=== PATIENT | female | born 1955 | race Caucasian/White ===

== ENCOUNTER → 2023-07-19 12:00 | Outpatient (REF) | payer MEDICARE, OTHER, SELFPAY ==
[2023-07-19 13:17] LABS: Erythrocyte Sed Rate 54 mm/hour (0-20)
[2023-07-23 21:27] LABS: Calprotectin, Fecal 39 ug/g (<=49)
== END ==
LOC: REG 12:00
PROVIDERS: ATTENDING PHYSICIAN Specialist; FAMILY PHYSICIAN Family Medicine
DX: R19.7 Diarrhea, unspecified (principal); R51.9 Headache, unspecified
CPT/HCPCS: 36415; 83993; 85652; 86140; 87045; 87046; 87077; 87328; 87329; 87427

== ENCOUNTER → 2023-08-04 13:37 | Outpatient (REF) | payer MEDICARE, OTHER, SELFPAY | LOC: DHCBS MAIN 13:37 | PROVIDERS: ATTENDING PHYSICIAN Internal Medicine Cardiovascular Disease; FAMILY PHYSICIAN Family Medicine | DX: R00.1 Bradycardia, unspecified (principal); I10 Essential (primary) hypertension | CPT/HCPCS: 93306 ==

== ENCOUNTER → 2023-11-09 15:53 | Outpatient (REF) | payer MEDICARE, OTHER, SELFPAY | LOC: MRI 3T 15:53 | PROVIDERS: ATTENDING PHYSICIAN Specialist | DX: G35 Multiple sclerosis (principal) | CPT/HCPCS: 72156; A9575 ==

== ENCOUNTER → 2023-11-16 07:15 | Outpatient (REF) | payer MEDICARE, OTHER, SELFPAY ==
[2023-11-16] MEDS: FLUSH (NSS) 1 FLUSH IV (09:03)
[2023-11-16] MEDS: LEXISCAN 0.400000000000000022 MG IV (09:03)
[2023-11-16] MEDS: AMINOPHYLLINE 75 MG IV (09:12)
== END ==
LOC: RCS 07:15
PROVIDERS: ATTENDING PHYSICIAN Internal Medicine Cardiovascular Disease; FAMILY PHYSICIAN Family Medicine
DX: R06.09 Other forms of dyspnea (principal)
CPT/HCPCS: 78452; 93017; A9500; J2785

== ENCOUNTER → 2023-11-29 10:07 | Outpatient (REF) | payer MEDICARE, OTHER, SELFPAY ==
[2023-11-29 12:13] LABS: % Basophils 0.8 % (0-2); % Eosinophils 1.3 % (0-6); % Immature Granulocytes 0.3 % (0-0.5); % Lymphocytes 8.8 % (20.5-51.1); % Monocytes 5.3 % (1.7-9.3); % Neutrophils 83.5 % (42.2-75.2); Absolute Basophils 0.1 10^3/uL (0-0.2); Absolute Eosinophils 0.1 10^3/uL (0-0.7); Absolute Lymphocytes 0.5 10^3/uL (1.2-3.4); Absolute Monocytes 0.3 10^3/uL (0.1-0.6); Hematocrit 39.8 % (37.0-47.0); Hemoglobin 13.2 g/dL (12.0-16.0); Mean Corp Hgb Conc. 33.2 g/dL (33.0-37.0); Mean Corpuscular Hgb 27.9 pg (27.0-31.0); Mean Corpuscular Volume 84.1 fL (81.0-99.0); Mean Platelet Volume 9.8 fL (7.4-10.4); Nucleated Red Blood Cells % 0 %; Platelet Count 193 10^3/uL (130-400); Red Blood Cell Count 4.73 10^6/uL (4.20-5.40); Red Cell Dist. Width 15.9 % (11.5-14.5)
[2023-11-29 12:17] LABS: Ionized Calcium 0.99 mMOL/L (1.15-1.33)
[2023-11-29 12:59] LABS: IgA 208 mg/dl (70-400); IgG 1360 mg/dl (700-1600); IgM 156 mg/dl (40-230)
[2023-11-29 13:19] LABS: Erythrocyte Sed Rate 64 mm/hour (0-20)
[2023-11-29 13:31] LABS: ALT (SGPT) < 10 U/L (0-35); AST (SGOT) 23 U/L (14-36); Albumin 4.5 g/dl (3.5-5.0); Alkaline Phosphatase 125 U/L (38-126); Blood Urea Nitrogen 15 mg/dl (7-17); Carbon Dioxide 28 mmol/L (22-30); Chloride 100 mmol/L (98-107); Glucose 108 mg/dl (70-99); Sodium 138 mmol/L (135-145); Total Bilirubin 0.7 mg/dl (0.2-1.3); Total Protein 8.1 g/dl (6.3-8.2); eGFR > 60.00
[2023-11-29 13:48] LABS: Vitamin B12 360 pg/ml (239-931)
[2023-11-29 18:51] LABS: Hepatitis B Surface Antigen Negative (Negative)
[2023-11-29 19:00] LABS: Hepatitis B Core Ab, IgM Negative (Negative)
[2023-11-29 19:09] LABS: Hepatitis C Antibody Negative (Negative)
[2023-11-30 13:55] LABS: HIV Combo Negative (Negative)
[2023-12-01 08:57] LABS: Quantiferon Mitogen minus NIL 7.78 IU/mL; Quantiferon NIL 0.06 IU/mL; Quantiferon TB Gold Plus Negative (Negative)
[2023-12-01 15:06] LABS: ANA, IgG Reflex to HEp-2 Detected (None Detected)
[2023-12-02 01:47] LABS: Varicella Zoster IgM 0.61 ISR (<=0.90)
[2023-12-02 02:21] LABS: SSA 52 (Ro)(ENA) Ab, IgG 2 AU/mL (0-40); SSA 60 (Ro)(ENA) Ab, IgG 0 AU/mL (0-40); SSB (La)(ENA) Ab, IgG 10 AU/mL (0-40)
== END ==
LOC: REG 10:07
PROVIDERS: ATTENDING PHYSICIAN Psychiatry & Neurology Neurology; FAMILY PHYSICIAN Family Medicine; OTHER PHYSICIAN Internal Medicine Endocrinology, Diabetes & Metabolism; REFERRING PHYSICIAN Specialist
DX: E03.9 Hypothyroidism, unspecified (principal); E89.2 Postprocedural hypoparathyroidism; Z51.81 Encounter for therapeutic drug level monitoring; G35 Multiple sclerosis; R51.9 Headache, unspecified; R19.7 Diarrhea, unspecified; Z79.899 Other long term (current) drug therapy
CPT/HCPCS: 36415; 80053; 82330; 82607; 82784; 85025; 85652; 86038; 86140; 86235; 86480; 86618; 86705; 86787; 86803; 87340; 87389

== ENCOUNTER → 2023-12-25 11:44 | Outpatient (REF) | payer MEDICARE, OTHER, SELFPAY | LOC: REG 11:44 | PROVIDERS: ATTENDING PHYSICIAN Internal Medicine Gastroenterology; FAMILY PHYSICIAN Family Medicine | DX: R19.7 Diarrhea, unspecified (principal); R19.4 Change in bowel habit | CPT/HCPCS: 83993; 87045; 87046; 87177; 87209; 87324; 87328; 87329; 87427; 87449 ==

== ENCOUNTER → 2024-01-05 13:57 | Outpatient (REF) | payer MEDICARE, OTHER, SELFPAY | LOC: WDC 13:57 | PROVIDERS: ATTENDING PHYSICIAN Family Medicine | DX: Z12.31 Encounter for screening mammogram for malignant neoplasm of breast (principal) | CPT/HCPCS: 77063; 77067 ==

== ENCOUNTER → 2024-01-13 06:36 | Day surgery (SDC) | payer MEDICARE, OTHER, SELFPAY | LOC: GI 06:36 | PROVIDERS: ATTENDING PHYSICIAN Internal Medicine Gastroenterology | DX: R19.4 Change in bowel habit (principal); K57.30 Diverticulosis of large intestine without perforation or abscess without bleeding; K64.8 Other hemorrhoids; K55.20 Angiodysplasia of colon without hemorrhage | CPT/HCPCS: 45380; 88305; 93005 ==

== ENCOUNTER → 2024-03-14 10:47 | Outpatient (REF) | payer MEDICARE, OTHER, SELFPAY | LOC: MRI 3T 10:47 | PROVIDERS: ATTENDING PHYSICIAN Psychiatry & Neurology Neurology; FAMILY PHYSICIAN Family Medicine | DX: G35 Multiple sclerosis (principal); Z79.899 Other long term (current) drug therapy; H53.9 Unspecified visual disturbance | CPT/HCPCS: 70553 ==

== ENCOUNTER → 2024-05-22 13:28 | Outpatient (REF) | payer MEDICARE, OTHER, SELFPAY | LOC: PAVMRI 13:28 | PROVIDERS: ATTENDING PHYSICIAN Psychiatry & Neurology Neurology | DX: G35 Multiple sclerosis (principal); H53.9 Unspecified visual disturbance | CPT/HCPCS: 70543; A9575 ==

== ENCOUNTER → 2024-06-22 11:10 | Outpatient (REF) | payer MEDICARE, OTHER, SELFPAY ==
[2024-06-22 13:09] LABS: Urine Albumin 1+ (Neg - Trace); Urine Bilirubin Negative (Negative); Urine Character Very Cloudy (Clear); Urine Color Yellow; Urine Glucose Negative (Negative); Urine Ketone Negative (Negative); Urine Leukocyte 2+ (Negative); Urine Nitrite Negative (Negative); Urine Occult Blood 4+ (Negative); Urine Urobilinogen Negative (Neg - 1+)
[2024-06-22 14:35] LABS: Urine Mucus Few; Urine Squamous Cell >30 /LPF (Few)
[2024-06-22 14:36] LABS: Urine Amorphous Seen
[2024-06-22 14:38] LABS: Urine Red Blood Cell 16-20 /HPF (0-2)
[2024-06-22 14:39] LABS: Urine Bacteria Many (Negative)
== END ==
LOC: REG 11:10
PROVIDERS: ATTENDING PHYSICIAN Nurse Practitioner Family; FAMILY PHYSICIAN Family Medicine
DX: R30.0 Dysuria (principal)
CPT/HCPCS: 81003; 81015; 87086

== ENCOUNTER → 2024-06-28 15:54 | Outpatient (REF) | payer MEDICARE, OTHER, SELFPAY ==
[2024-06-28 17:00] LABS: % Basophils 0.6 % (0-2); % Eosinophils 0.3 % (0-6); % Immature Granulocytes 0.5 % (0-0.5); % Lymphocytes 5.4 % (20.5-51.1); % Monocytes 5.8 % (1.7-9.3); % Neutrophils 87.4 % (42.2-75.2); Absolute Basophils 0.1 10^3/uL (0-0.2); Absolute Immature Granulocytes 0.1 10^3/uL (0-0.05); Absolute Lymphocytes 0.7 10^3/uL (1.2-3.4); Absolute Monocytes 0.7 10^3/uL (0.1-0.6); Absolute Neutrophils 10.6 10^3/uL (1.4-6.5); Hematocrit 41.3 % (37.0-47.0); Hemoglobin 13.2 g/dL (12.0-16.0); Mean Corpuscular Hgb 28.1 pg (27.0-31.0); Mean Corpuscular Volume 88.1 fL (81.0-99.0); Mean Platelet Volume 10.6 fL (7.4-10.4); Nucleated Red Blood Cells % 0 %; Platelet Count 197 10^3/uL (130-400); Red Blood Cell Count 4.69 10^6/uL (4.20-5.40); White Blood Cell Count 12.2 10^3/uL (4.8-10.8)
[2024-06-28 17:05] LABS: ALT (SGPT) < 10 U/L (0-35); AST (SGOT) 19 U/L (14-36); Albumin 4.6 g/dl (3.5-5.0); Alkaline Phosphatase 102 U/L (38-126); Blood Urea Nitrogen 12 mg/dl (7-17); Calcium 8.1 mg/dl (8.4-10.2); Carbon Dioxide 26 mmol/L (22-30); Chloride 95 mmol/L (98-107); Glucose 116 mg/dl (70-99); Potassium 3.4 mmol/L (3.5-5.1); Sodium 135 mmol/L (135-145); Total Bilirubin 0.9 mg/dl (0.2-1.3); Total Protein 7.7 g/dl (6.3-8.2); eGFR > 60.00
== END ==
LOC: CLAB 15:54
PROVIDERS: ATTENDING PHYSICIAN Family Medicine
DX: N30.90 Cystitis, unspecified without hematuria (principal); R10.9 Unspecified abdominal pain; Z90.5 Acquired absence of kidney; Z87.442 Personal history of urinary calculi
CPT/HCPCS: 36415; 80053; 85025

== ENCOUNTER → 2024-07-21 14:51 | Outpatient (REF) | payer MEDICARE, OTHER, SELFPAY | LOC: RAD 14:51 | PROVIDERS: ATTENDING PHYSICIAN Family Medicine | DX: N30.90 Cystitis, unspecified without hematuria (principal); R10.9 Unspecified abdominal pain; Z90.5 Acquired absence of kidney; Z87.442 Personal history of urinary calculi | CPT/HCPCS: 76770 ==

== ENCOUNTER → 2024-07-22 11:09 | Outpatient (REF) | payer MEDICARE, OTHER, SELFPAY ==
[2024-07-22 11:52] LABS: Ionized Calcium 1.04 mMOL/L (1.15-1.33)
[2024-07-22 11:53] LABS: Urine Albumin 1+ (Neg - Trace); Urine Bilirubin Negative (Negative); Urine Character Clear (Clear); Urine Color Yellow; Urine Glucose Negative (Negative); Urine Ketone Negative (Negative); Urine Leukocyte 2+ (Negative); Urine Nitrite Negative (Negative); Urine Occult Blood 4+ (Negative); Urine Specific Gravity 1.015 (<1.030); Urine Urobilinogen Negative (Neg - 1+)
[2024-07-22 11:56] LABS: % Basophils 0.8 % (0-2); % Eosinophils 0.9 % (0-6); % Immature Granulocytes 0.5 % (0-0.5); % Lymphocytes 9.9 % (20.5-51.1); % Neutrophils 82.9 % (42.2-75.2); Absolute Basophils 0.1 10^3/uL (0-0.2); Absolute Eosinophils 0.1 10^3/uL (0-0.7); Absolute Lymphocytes 0.7 10^3/uL (1.2-3.4); Absolute Monocytes 0.3 10^3/uL (0.1-0.6); Absolute Neutrophils 5.4 10^3/uL (1.4-6.5); Hematocrit 36.3 % (37.0-47.0); Hemoglobin 11.9 g/dL (12.0-16.0); Mean Corp Hgb Conc. 32.8 g/dL (33.0-37.0); Mean Corpuscular Hgb 28.3 pg (27.0-31.0); Mean Corpuscular Volume 86.4 fL (81.0-99.0); Mean Platelet Volume 10.6 fL (7.4-10.4); Nucleated Red Blood Cells % 0 %; Platelet Count 180 10^3/uL (130-400); Red Cell Dist. Width 14.9 % (11.5-14.5); White Blood Cell Count 6.6 10^3/uL (4.8-10.8)
[2024-07-22 12:00] LABS: Urine Bacteria Few (Negative); Urine Calcium Oxalate Crystals Present; Urine Squamous Cell 0-2 /LPF (Few)
[2024-07-22 12:16] LABS: ALT (SGPT) < 10 U/L (0-35); AST (SGOT) 18 U/L (14-36); Albumin 4.4 g/dl (3.5-5.0); Alkaline Phosphatase 80 U/L (38-126); Blood Urea Nitrogen 15 mg/dl (7-17); Calcium 8.8 mg/dl (8.4-10.2); Carbon Dioxide 30 mmol/L (22-30); Chloride 100 mmol/L (98-107); Glucose 121 mg/dl (70-99); HDL Cholesterol 66 mg/dl; LDL Cholesterol, Calculated 91 mg/dl; Potassium 3.6 mmol/L (3.5-5.1); Sodium 139 mmol/L (135-145); Total Bilirubin 0.7 mg/dl (0.2-1.3); Total Cholesterol 189 mg/dl (50-199); Total Protein 6.9 g/dl (6.3-8.2); Triglyceride 163 mg/dl (10-149); Very Low Density Lipoprotein 32 mg/dl (0-30); eGFR > 60.00
[2024-07-22 12:28] LABS: Intact PTH 17.2 pg/ml (13.6-85.8)
[2024-07-22 12:32] LABS: Free T4 1.26 ng/dl (0.78-2.19); Vitamin D, 25-OH*** 54.4 ng/mL (30-80)
[2024-07-22 12:46] LABS: TSH 0.59 uIU/ml (0.47-4.68)
[2024-07-22 14:35] LABS: Glycohemoglobin (HgbA1c) 5.6 % (4.0-5.6)
== END ==
LOC: REG 11:09
PROVIDERS: ATTENDING PHYSICIAN Internal Medicine Endocrinology, Diabetes & Metabolism; FAMILY PHYSICIAN Family Medicine
DX: E03.9 Hypothyroidism, unspecified (principal); E89.2 Postprocedural hypoparathyroidism; E55.9 Vitamin D deficiency, unspecified; N30.90 Cystitis, unspecified without hematuria; R10.9 Unspecified abdominal pain; Z90.5 Acquired absence of kidney; Z87.442 Personal history of urinary calculi; E89.0 Postprocedural hypothyroidism; E78.2 Mixed hyperlipidemia; R73.03 Prediabetes
CPT/HCPCS: 36415; 80053; 80061; 81003; 81015; 82306; 82330; 83036; 83970; 84439; 84443; 85025; 87086

== ENCOUNTER 2024-08-23 06:26 | Day surgery (SDC) | payer MEDICARE, OTHER, SELFPAY ==
[2024-08-16 14:22] VITALS: BMI 33.6
--- NOTE | 2024-08-16 16:15 | PTCARENOTE ---
Abnormal ECG 08/16/[address] Gardner, no further interventions requested.
[2024-08-23 08:21] VITALS: BMI 33.6
[2024-08-23] MEDS: NORMOSOL-R/PLASMALYTE-A 1000 IV (08:24)
[2024-08-23 09:45] VITALS: BP 162/87
--- NOTE | 2024-08-23 09:54 | SUR.PHASEI ---
Rec'd sleepy, oriented x 3 by RN, HOB elevated low fowlers in PACU, denies c/o
[2024-08-23 10:00] VITALS: BP 160/84
--- NOTE | 2024-08-23 10:04 | SUR.PHASEI ---
deep breathes encouraged keyur well
[2024-08-23] MEDS: Pyridium 200 MG PO (10:10)
[2024-08-23 10:15] VITALS: BP 140/80
[2024-08-23 10:18] VITALS: BP 145/80
[2024-08-23 10:33] VITALS: BP 142/95
[2024-08-23 10:50] VITALS: BP 144/99
== END 2024-08-23 11:03 | disposition home or self-care (01) ==
LOC: SDS 06:26
PROVIDERS: ATTENDING PHYSICIAN Specialist; FAMILY PHYSICIAN Family Medicine
DX: N20.0 Calculus of kidney (principal)
CPT/HCPCS: 52356; 74018; 76000; C1894; C2617

== ENCOUNTER 2024-10-25 14:50 | Inpatient (IN) | payer MEDICARE, OTHER, SELFPAY ==
[2024-10-24] VITALS (22 sets, daily range): BP systolic 128–229; BP diastolic 0–164; PULSE 68; BMI 38.1
--- NOTE | 2024-10-24 18:08 | ED.GENMED ---
History of Present Illness
General
Chief Complaint: Numbness
Source: patient
Exam Limitations: none
Time Seen by Provider: 10/24/24 17:50
Nursing documentation reviewed up to this point in time: agreed with
History of Present Illness
History of Present Illness:
61-year-old female presents emergency department due to left-sided facial numbness, headache, posterior eye pain ongoing for 1 week. She follows with neurologist Dr. Dominguez at [facility]. He instructed her to come to the hospital to be evaluated.
Past History
Past History
ED Past Medical History: Other (Thyroidectomy, chronic pain syndrome, kidney stones, MS, fibromyalgia) and Other (Multiple sclerosis, chronic pain syndrome, depression, anxiety)
ED Past Surgical History: Gynecological and Other (Thyroidectomy)
Social History
Tobacco: Non-smoker
Alcohol: None
Drug: None
Personal:
Living: with family
Employment: Employed
Family History
Family History: Hypertension
Review of Systems
Review of Systems
Allergies reviewed?: Yes
All Other Systems: Not applicable
Constitutional: Reports no symptoms
EENT: Reports no symptoms
Respiratory: Reports no symptoms
Cardiac: Reports no symptoms
ABD/GI: Reports no symptoms
: Reports no symptoms
Musculoskeletal: Reports no symptoms
Skin: Reports no symptoms
Neurological: Reports headache and numbness
Endocrine: Reports no symptoms
Hematologic/Lymphatic: Reports no symptoms
Psychiatric: Reports no symptoms
Phy Exam
Physical Exam
Physical Exam:
Physical Exam
General: no apparent distress, not acutely ill
Neck: supple. no meningeal signs. normal posterior pharynx
Heart: s1/s2 regular rate and rhythm, no murmur. equal radial
pulses.
HEENT: Pupils equal round reactive to light, EOMI
Lungs: no acute respiratory distress. clear bilaterally
Abdomen: normal bowel sounds. not tender. no CVAT
Neuro: alert and oriented. no focal neurological deficits cranial nerves II through XII intact, except left facial numbness
Skin: no rash
Psychiatric: well kept. interactive and cooperative
Extremities: no edema. no calf tenderness. negative homans. good distal pulses
Course
Orders/Labs/Results
Orders:
Orders
10/24/24 13:33
Electrocardiogram (*1) Urgent
Reason for Study: Other
Other Reason for Exam: Possible Stroke
EKG- Treatment ONCE
10/24/24 13:35
CT Head W/o Iv Contrast Urgent
Comment:
Reason For Exam: headache and facial numbness
10/24/24 17:59
Diphenhydramine [Benadryl] 25 mg IV NOW STA
10/24/24 18:00
Labetalol HCl [Trandate] 10 mg IV NOW STA
10/24/24 18:22
Complete Blood Count/With Diff Routine
Comprehensive Metabolic Panel Routine
10/24/24 18:28
Promethazine [Phenergan] 25 mg 0.9% Sodium Chloride 50 ml [Nss] 50 ml IV NOW
10/24/24 19:15
Labetalol HCl [Trandate] 20 mg IV NOW STA
10/24/24 20:14
Admit/Transfer Patient As Directed
Co-Sign Provider:
Level of Care: Observation services
Assign to:: Telemetry
Physician / Group: Vicky
Diagnosis: hypertensive urgency
Reason for Telemetry: CVA/TIA
Date to Stop Telemetry: 10/27/24
Time to Stop Telemetry: 11:00
PRN Pain Medication Management As Directed
May give lesser potent ordered pain med per pt: Yes
preference::
Protocol:: Medication orders for pain may be administered in a
manner that supports deferring to patient preference
when the pt is:
- Requesting an ordered lesser potent pain medication.
Least to most potent pain medications are defined
as: acetaminophen < NSAID < tramadol < opioids
(morphine, oxycodone, hydromorphone).
- Requesting a lesser dose of the same medication IF
ORDERED.
- Requesting a less intrusive route of administration
if both routes are prescribed by the provider (PO <
IV).
10/24/24 20:15
Diphenhydramine [Benadryl] 25 mg IV NOW STA
10/24/24 20:16
Code Status As Directed
Resuscitation Status: Full Code
10/24/24 21:00
Nicardipine 40 mg/200 ml [Cardene] 40 mg in 200 ml IV PER PROTOCOL
Initial dose in mg/hr, then titrate:: 5
Titrate to keep:: SBP 140 - 160 mmHg
Titrate by mg/hr:: 2.5 mg/hr
Frequency of titrations (minutes):: 5-15 minutes
Maximum dose in mg/hr:: 15
Begin to taper infusion when:: Remained at goal for 2hrs
Taper by mg/hr:: 2.5 mg/hr
Frequency of taper (minutes) if patient maintains goal:: every 15-30 minutes
Taper to off?: Yes
If infusion off & no longer maintaining goal:: Contact Provider
10/24/24 22:32
Acetaminophen [Tylenol/Feverall] 650 mg RECTAL Q4HPRN PRN
Acetaminophen [Tylenol] 650 mg PO Q4HPRN PRN
Calcitriol [Rocaltrol] 0.5 mcg PO TID
Gabapentin [Neurontin] 300 mg PO DAILYPRN PRN
Gabapentin [Neurontin] 300 mg PO TID
Labetalol HCl [Trandate] 10 mg IV Q6HPRN PRN
Lorazepam [Ativan] 0.5 mg PO QID PRN
Promethazine [Phenergan] 12.5 mg 0.9% Sodium Chloride 50 ml [Nss] 50 ml IV Q4HPRN
Rosuvastatin Calcium [Crestor] 40 mg PO HS
10/24/24 22:32
Case Management Consult ONCE
Case Management Consult: Discharge Planning
Comment: stroke/tia
DIETARY IP CONSULT Routine
Reason for Consult: stroke/TIA
NEUROLOGY CONSULT Routine
Consulting Provider: Jeremy Eaton
Was physician already notified: Yes
Photographer Model Urgent
MR Brain With Contrast Routine
Comment:
Reason For Exam: stroke/TIA, eval MS
Recent pill cam endoscopy?: No
MR Cervical Spine W Contrast Routine
Comment:
Reason For Exam: eval ms
Recent pill cam endoscopy?: Yes
Activity As Directed
Activity Level: With Assistance
NIH Stroke Scale As Directed
Directions: Per protocol
Comment: every shift and with any change in condition or mental status
Neurological Checks As Directed
Frequency: q4h
Additional Instructions:: q4h x 24h upon admission to the floor, then qshift & with any change in condition
and mental status
Patient Education As Directed
Type: Stroke education packet
Comment: provide to patient and family
Swallow Screening CVA/TIA ONLY As Directed
Comment: NPO until swallowing screening completed
If patient FAILS swallow screening:: NPO, Speech Therapy consult, Aspiration Precautions
If patient PASSES swallow screening, diet:: Cholesterol Lowering
Above diet order entered?: Yes- passed screening
Vital Signs As Directed
Frequency: Per unit guidelines
O2 Therapy [RESP] Routine
Nasal Cannula Liter Flow: 2 LPM
Titrate/Wean O2 to maintain O2 sat greater than (%): 94
Special Instructions: Titrate oxygen via nasal cannula starting at 2 liters/minute to keep SpO2 greater than
94%. Notify physician if greater than or equal to 6 liters/minute of O2
Ot Eval And Treat Routine
Pt Eval And Treat Routine
Activity Level: With Assistance
Speech Therapy Eval & Treat Routine
DX Deep Vein Thrombosis Video Routine
10/25/24 04:00
Sertraline HCl [Zoloft] 100 mg PO BID@0400,1000
10/25/24 06:00
Basic Metabolic Panel IN AM
Cardiovascular Evaluation IN AM
Complete Blood Count/No Diff IN AM
Erythrocyte Sed Rate IN AM
Glycohemoglobin (HgbA1c) IN AM
Magnesium IN AM
Levothyroxine [Synthroid] 100 mcg PO DAILY @ 0600
10/25/24 08:00
ARIPiprazole [Abilify] 5 mg PO DAILY
Amlodipine [Norvasc] 10 mg PO DAILY
Calcium Carbonate/Vitamin D3 [Oscal 500 + D] 500 mg PO BID
Lorazepam [Ativan] 1 mg PO DAILY
colestipol See Dose Instructions PO BID
teriflunomide See Dose Instructions PO DAILY
10/25/24 18:00
Enoxaparin Sodium [Lovenox] 40 mg SC QPM
10/27/24 11:00
DC Protocol for Telemetry ONCE
Abnormal Lab Results
10/24/24
18:22
MCHC 32.6 L g/dL
(33.0-37.0)
RDW 14.6 H %
(11.5-14.5)
Absolute Neuts (auto) 7.1 H 10^3/uL
(1.4-6.5)
Absolute Lymphs (auto) 0.8 L 10^3/uL
(1.2-3.4)
Neutrophils % 83.9 H %
(42.2-75.2)
Lymphocytes % 9.8 L %
(20.5-51.1)
Potassium 3.4 L mmol/L
(3.5-5.1)
Carbon Dioxide 32 H mmol/L
(22-30)
BUN 19 H mg/dl
(7-17)
Glucose 104 H mg/dl
(70-99)
10/24/24 18:22
10/24/24 18:22
Vital Signs
Initial and Last Documented VS:
Initial Vital Signs
Temp Pulse Resp BP Pulse Ox
97.9 F 86 18 207/126 92
10/24/24 13:25 10/24/24 13:25 10/24/24 13:25 10/24/24 13:25 10/24/24 13:25
Last Documented Vital Signs
Temp Pulse Resp BP Pulse Ox
98.7 F 89 10 151/92 95
10/24/24 23:04 10/24/24 22:47 10/24/24 21:15 10/24/24 22:00 10/24/24 23:01
MDM/Problems Addressed
Differential Diagnosis Includes:
CVA, MS exacerbation
MDM/Problems Addressed:
69-year-old female with hypertensive urgency, Cardene drip, possible CVA versus MS exacerbation. Admit to hospitalist.
Chronic conditions affecting care: HTN and Neurological disorder (MS)
Acute Exacerbation and/or Progression of Chronic Illness: HTN and Neurological disorder (MS)
*Radiology
Radiology exam reviewed: radiology read reviewed (CT head no acute findings)
*Pulse Oximetry
Patient hypoxic: no
*EKG
Interpreted by ED Provider?: Yes
EKG Intrepretation Date: 10/24/24
EKG Intrepretation Time: 13:26
Interpretation: abnormal
Comparison EKG: changes noted
Heart Rate: 77
Rate: normal
Rhythm: sinus
Sylvia: left axis deviation
Interval: normal interval
QRS Pattern: normal QRS
Ischemia: no ischemia
*Suit Maker Interpretation
Rate: normal
Interpretation: normal
Heart Rate: 77
Rhythm: sinus
*Critical Care Note
Total Time (30-74mins, 75-104mins- exclusive of procedures): 42
comment:
Critical care statement: A total of 42 minutes of critical care time was provided for this patient. This includes management of unstable vital signs, evaluation of the patient at bedside, reviewing the patient's pertinent medical records, discussion
with consultants, review of old EKGs and review of pertinent medical records. This time with separate from time utilized to perform the aforementioned documented procedures
Patient Management
Social determinants of health affecting care: Living situation and Strong social support
Discussion with other providers: Hospitalist and [facility] (Neurology)
Escalation/DeEscalation of care consider admission/obs:
Admission indicated
ED Attending Note
-
Portions of this chart may have been created with voice recognition software.� Occasional wrong word or��sound alike� substitutions may have occurred due to the inherent limitations of voice recognition software.
Discharge Plan
Departure
Patient Disposition: Admit
Date of Disposition: 10/24/24
Time of Disposition: 19:19
Admit to: ICU
Presentation/result/management discussed w/ accepting MD/DO: Hospitalist
Patient with high blood pressure during this ER visit?: Yes
Condition: Fair
Discharge Problem:
Hypertensive urgency, Headache, Left facial numbness, Multiple sclerosis, Facial numbness
Interventions
Interventions:
*Risk Screen - Suicide Last Done: 10/24/24 13:25
*General Assessment Last Done: 10/24/24 13:32
*Neglect/Abuse Screening Last Done: 10/24/24 13:25
*ED- Fall Risk Assessment Last Done: 10/24/24 18:07
*ED COVID-19 Vaccine History Last Done: 10/24/24 18:07
*Nursing Disposition Last Done: 10/24/24 22:20
ED- Neurological Assessment Last Done: 10/24/24 19:00
Discharge Date and Time
Discharge Date/Time: 10/24/24 22:21
[2024-10-24] MEDS: TRANDATE 10 MG IV (18:25)
[2024-10-24] MEDS: BENADRYL 25 MG IV ×2 (18:26→20:20)
[2024-10-24 18:34] LABS: % Basophils 0.7 % (0-2); % Eosinophils 0.5 % (0-6); % Immature Granulocytes 0.2 % (0-0.5); % Lymphocytes 9.8 % (20.5-51.1); % Monocytes 4.9 % (1.7-9.3); % Neutrophils 83.9 % (42.2-75.2); Absolute Basophils 0.1 10^3/uL (0-0.2); Absolute Lymphocytes 0.8 10^3/uL (1.2-3.4); Absolute Monocytes 0.4 10^3/uL (0.1-0.6); Absolute Neutrophils 7.1 10^3/uL (1.4-6.5); Hemoglobin 12.7 g/dL (12.0-16.0); Mean Corp Hgb Conc. 32.6 g/dL (33.0-37.0); Mean Corpuscular Hgb 27.7 pg (27.0-31.0); Mean Platelet Volume 9.9 fL (7.4-10.4); Nucleated Red Blood Cells % 0 %; Platelet Count 185 10^3/uL (130-400); Red Blood Cell Count 4.59 10^6/uL (4.20-5.40); Red Cell Dist. Width 14.6 % (11.5-14.5); White Blood Cell Count 8.5 10^3/uL (4.8-10.8)
[2024-10-24 18:46] LABS: ALT (SGPT) < 10 U/L (0-35); AST (SGOT) 18 U/L (14-36); Albumin 4.8 g/dl (3.5-5.0); Alkaline Phosphatase 94 U/L (38-126); Blood Urea Nitrogen 19 mg/dl (7-17); Calcium 8.8 mg/dl (8.4-10.2); Carbon Dioxide 32 mmol/L (22-30); Chloride 105 mmol/L (98-107); Estimated Creatinine Clearance 75 ml/min; Glucose 104 mg/dl (70-99); Potassium 3.4 mmol/L (3.5-5.1); Sodium 140 mmol/L (135-145); Total Bilirubin 0.6 mg/dl (0.2-1.3); Total Protein 7.7 g/dl (6.3-8.2); eGFR > 60.00
[2024-10-24] MEDS: PHENERGAN 51 MG IV (19:16)
[2024-10-24] MEDS: TRANDATE 20 MG IV (19:19)
--- NOTE | 2024-10-24 19:53 | HPS.HSE ---
Family Physician
-
Family Physician: Taylor Liang
Chief Complaint
-
Numbness tingling and headache
History of Present Illness
This is a 69-year-old with past medical history significant for multiple sclerosis, nephrolithiasis, fibromyalgia, hypertension, hypothyroid, recurrent nephrolithiasis who presents to the emergency department with progressive worsening left-sided
headache numbness and paresthesias.
Patient reports that she has been following with neurology for evaluation of vision changes in right eye which may be secondary to her MS progression. She reports that usually typical symptoms include tremors on the left arm headache facial pain
numbness and tingling. Some more for upper extremity left arm numbness tingling is tolerable secondary to cervical radiculopathy. She states that over the last few weeks she has had increased stressors including concern over losing home, concerns
over losing her vision in the right eye, recent EKG which showed a possible old infarct. In the setting she states she has been having rising blood pressures and worsening left-sided headache numbness tingling on the left side of her face, numbness
but no focal weakness. She was sent to the emergency department by a neurologist for further evaluation. She reports compliance with Norvasc 7.5 mg p.o. daily. She denies any fevers or chills. She denies any nausea or vomiting.
On arrival in the emergency department she was hypertensive to 200 systolic, vital signs otherwise stable. ECG shows normal sinus rhythm at a rate of [address] of the head was negative for any acute intracranial process. CBC was unremarkable stop electrolytes BUN/creatinine were stable.
Medical History
Past Medical History
Past Medical History: Reports Cancer (Endometrial cancer), HTN, Hypercholesterolemia, Valvular Disease (Mild aortic insufficiency) and Other (Multiple sclerosis, fibromyalgia, chronic pain syndrome, IBS, nephrolithiasis,)
Additional Past Medical History:
Cholelithiasis
Past Surgical History: Reports Gynocological (Total hysterectomy with bilateral salpingo-oophorectomy) and Other (Status post partial right nephrectomy, orbital and facial reconstruction surgery, status post thyroid ectomy)
Social History
Tobacco: Non-smoker
Alcohol: None
Drug: None
Personal: Single
Living: With Family
Family History
Family History: Not pertinent
Allergies / Home Medications
Allergies reflects when Allergies were last updated in [facility] [employer].
Home Medications with original date entered in [employer]
Allergy/Medication List:
Allergies
Allergy/AdvReac Type Severity Reaction Status Date / Time
Cephalosporins Allergy CHILDHOOD Verified 08/23/24 08:09
ketorolac tromethamine Allergy Itching Verified 08/23/24 08:09
[From Toradol]
penicillin G Allergy CHILDHOOD Verified 08/23/24 08:09
Penicillins Allergy CHILDHOOD Verified 08/23/24 08:09
Sulfa (Sulfonamide Allergy CHILDHOOD Verified 08/23/24 08:09
Antibiotics)
sulfisoxazole Allergy CHILDHOOD/DOESN'T Verified 08/23/24 08:09
REMEMBER
tizanidine [From Zanaflex] Allergy Unknown Verified 08/23/24 08:09
Home Medications
amlodipine 5 mg tablet 7.5 mg PO DAILY 08/17/24
aripiprazole 5 mg tablet (Abilify) 5 mg PO DAILY 08/17/24
calcitriol 0.5 mcg capsule 0.5 mcg PO TID 08/17/24
colestipol 1 gram tablet 1 g PO BID 08/17/24
ergocalciferol (vitamin D2) 1,250 mcg (50,000 unit) capsule 50,000 unit PO SCHUMACHER 08/17/24
levothyroxine 100 mcg tablet (Synthroid) 100 mcg PO DAILY 08/17/24
lorazepam 0.5 mg tablet 0.5 mg PO QID 08/17/24
rosuvastatin 40 mg tablet (Crestor) 40 mg PO HS 08/17/24
sertraline 100 mg tablet (Zoloft) 100 mg PO BID@0400,1000 08/17/24
teriflunomide 14 mg tablet 14 mg PO DAILY 08/17/24
acetaminophen 650 mg tablet,extended release (Tylenol 8 Hour) 1,300 mg PO [id number] PRN mild pain 10/24/24
calcium 600 mg (as carbonate)-vitamin D3 10 mcg (400 unit) tablet (Calcium 600 + D(3)) 1 tab PO BID 10/24/24
gabapentin 300 mg capsule 300 mg PO DAILYPRN PRN mild pain 10/24/24
gabapentin 300 mg capsule 300 mg PO TID 10/24/24
lorazepam 1 mg tablet 1 mg PO DAILY 10/24/24
Review of Systems
-
History Source: Patient
Constitutional: Reports Sleep Disturbance
EENT: Reports No Symptoms
Respiratory: Reports No Symptoms
Cardiac: Reports No Symptoms
Abdomen/GI: Reports No Symptoms
: Reports No Symptoms
Musculoskeletal: Reports No Symptoms
Skin: Reports No Symptoms
Neurological: Reports Headache and Numbness
Endocrine: Reports No Symptoms
Hematologic/Lymphatic: Reports No Symptoms
Psych: Reports No Symptoms
Physical Exam
Vital Signs
Vital Signs
Temp Pulse Resp BP Pulse Ox
97.8 F 71 16 200/90 94
10/24/24 17:27 10/24/24 19:19 10/24/24 18:09 10/24/24 19:19 10/24/24 18:09
Physical Exam
General: Well Developed, Well Nourished, No Apparent Distress and Comfortable
HEENT: NormoCephalic, Anicteric, Moist mucous membranes and Atraumatic
Respiratory: Clear
Cardiac: S1/S2 and Regular Rhythm
Breast: Deferred by me
GI: Soft, Non Tender, Non Distended and Normal Bowel Sounds
Rectal: Deferred by Provider
Genito-urinary: Deferred by me
Musculoskeletal: No Clubbing, No Cyanosis and No Edema
Skin: Warm
Neuro: AO x 3, No Motor Deficits, Cranial Nerves Intact and No Sensory Deficits; No Slurred Speech or Facial Droop
Hematologic/Lymphatic: No Lymphadenopathy
Psych: Anxious
Laboratory Results
-
10/24/24 18:22
10/24/24 18:22
Laboratory Results
Total Bilirubin 0.6 mg/dl (0.2-1.3) 10/24/24 18:22
AST 18 U/L (14-36) 10/24/24 18:
ALT < 10 U/L (0-35) 10/24/24 18:22
Alkaline Phosphatase 94 U/L (38-126) 10/24/24 18:22
Data Reviewed
-
CT Scan: Report Reviewed by me
Medical Tests (Nuc Med, Echo, EKG etc): Image Personally Visualized and interpreted
Lab Data: Labs Reviewed by me
Old Records: Reviewed
Impression/Plan
-
IMPRESSION:
69-year-old female with past medical history of multiple sclerosis, hypertension, nephrolithiasis, fibromyalgia, hypothyroid presenting to the emergency department with persistent left-sided headache and facial numbness without any other focal
neurological deficits. Concern for CVA versus MS flare. She is quite hypertensive on arrival in the emergency department currently blood pressure and not controlled with prn labetalol. She reports that her headache is still there but slightly
improved. Headache was being currently treated with promethazine which was given some increased anxiety and some tremors.
PLAN:
1. Numbness - Hypertensive urgency vs CVA or MS flare
- admit to telemetry
- keep SBP < 180 started nicardipine gtt.
- conitnue norvasc 10 daily
- consider additional antihypertensives when pain controlled
- MRI w/ contrast and MR head/neck per neuro
- continue teriflunomide
- neurochecks q 6
- lipid panel, a1c, tsh in am
- neurology consultation
DVT PPX - lovenox sq
Code status - Full Code
[2024-10-24] MEDS: ATIVAN 0.5 MG IV (21:07)
[2024-10-24] MEDS: CARDENE 200 IV (21:11)
[2024-10-24 22:34] LABS: Glucose - Point of Care 112 mg/dl (70-99)
[2024-10-24] MEDS: NEURONTIN 300 MG PO (23:17)
[2024-10-24] MEDS: TYLENOL 650 MG PO (23:17)
[2024-10-24] MEDS: ROCALTROL 0.5 MCG PO (23:17)
[2024-10-24] MEDS: CRESTOR 40 MG PO (23:17)
[2024-10-24] MEDS: KCL 20 MEQ PO (23:38)
[2024-10-24] MEDS: DILAUDID 0.5 MG IV (23:38)
[2024-10-25] VITALS (29 sets, daily range): BP systolic 111–159; BP diastolic 72–118; PULSE 80; O2SAT 93; BMI 36.7
--- NOTE | 2024-10-25 00:53 | PTCARENOTE ---
Addendum entered by Rashmi Jolly RN 10/25/24 05:10:
NIH 1, not zero, due to mild sensation loss on face.
Original Note:
Received patient AAOx3, following commands, complaining of headache 9/10 with jaw pain and left eye pain. Tylenol given with no relief, dilaudid given. Neuro check normal, NIH 0. Patient reports tingling/numbness on the left side of her face and
right leg with decreased sensation due to MS. Ambulates with cane to the bathroom. NS 60s-70s, titrating cardene to maintain SBP 140-160. Normothermic. Palpable radial and pedal pulses b/l. On 5 liters nasal cannula, saturating 92%. Patient denies
SOB or increased WOB. Lung sounds clear and diminished throughout. Abdomen soft, round, obese, positive bowel sounds. Patient voids in bathroom, has urgency issues. Skin intact, patch of dry/brown skin in middle upper back due to healing allergic
reaction. Left PIV patent, inserted right hand peripheral patent, WNL. Call mariscal within reach. Patient educated on stroke s/s and plan of care.
--- NOTE | 2024-10-25 05:10 | PTCARENOTE ---
Patient reporting headache, tylenol given. Patient hungry/nauseous and requested turkey sandwich, given. Labs sent, hourly rounding and patient safety checks ongoing. Call mariscal within reach.
[2024-10-25] MEDS: ZOLOFT 100 MG PO ×2 (05:12→11:37)
[2024-10-25] MEDS: ATIVAN 0.5 MG PO ×3 (05:13→21:12)
[2024-10-25] MEDS: TYLENOL 650 MG PO ×2 (05:13→10:59)
[2024-10-25] MEDS: SYNTHROID 100 MCG PO (05:13)
[2024-10-25 05:20] LABS: Hematocrit 34.1 % (37.0-47.0); Hemoglobin 11.3 g/dL (12.0-16.0); Mean Corp Hgb Conc. 33.1 g/dL (33.0-37.0); Mean Corpuscular Hgb 28.1 pg (27.0-31.0); Mean Corpuscular Volume 84.8 fL (81.0-99.0); Mean Platelet Volume 9.9 fL (7.4-10.4); Platelet Count 192 10^3/uL (130-400); Red Blood Cell Count 4.02 10^6/uL (4.20-5.40); Red Cell Dist. Width 14.9 % (11.5-14.5); White Blood Cell Count 9.6 10^3/uL (4.8-10.8)
[2024-10-25 05:34] LABS: INR 0.98; PT 13.3 Sec (11.4-14.6)
[2024-10-25 05:42] LABS: Blood Urea Nitrogen 23 mg/dl (7-17); Calcium 8.1 mg/dl (8.4-10.2); Carbon Dioxide 26 mmol/L (22-30); Chloride 106 mmol/L (98-107); Estimated Creatinine Clearance 65 ml/min; Glucose 129 mg/dl (70-99); HDL Cholesterol 60 mg/dl; LDL Cholesterol, Calculated 81 mg/dl; Potassium 3.8 mmol/L (3.5-5.1); Sodium 141 mmol/L (135-145); Total Cholesterol 172 mg/dl (50-199); Triglyceride 157 mg/dl (10-149); Very Low Density Lipoprotein 31 mg/dl (0-30); eGFR > 60.00
--- NOTE | 2024-10-25 07:05 | PTCARENOTE ---
Handoff NIH- for right visual field deficit from 3 o'clock to 6 o'clock and left facial sensory deficit. Left ac #22gprotective catheter, flushed and patent. Right hand #22g protective catheter occluded. Removed. Lungs CTA, dim in the bases.
Received her on 5 liters nasal cannula, removed Oxygen. Desaturated to 88%, placed back on 2 liters nasal cannula pulse ox 94%. Obese. +BSX4. Passed RN swallow screen. She was informed of the plan of care regarding neuro assessments and possibility
of being downgraded today, no longer requiring Cardene drip.
[2024-10-25] MEDS: ROCALTROL 0.5 MCG PO ×3 (07:51→21:03)
[2024-10-25] MEDS: ATIVAN 1 MG PO (07:52)
[2024-10-25] MEDS: ABILIFY 5 MG PO (07:52)
[2024-10-25] MEDS: NEURONTIN 300 MG PO ×3 (07:52→21:03)
[2024-10-25] MEDS: NORVASC 10 MG PO (07:52)
[2024-10-25] MEDS: OSCAL 500 + D PO ×2 (07:53→21:15)
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
--- NOTE | 2024-10-25 08:35 | PTOTSP ---
Speech Language Pathology
Pt seen for speech/language evaluations. No dysarthria noted. Language evaluated via the Quick Aphasia Battery (QAB), form 1. Pt with an overall score of 9.34, indicative of overall skills WFL.
Pt also seen for clinical bedside swallow evaluation. She denied any issues with P.O. intake at home and has not had PNA since childhood. She did report difficulty initiating dry swallows with saliva at times, needing to manually push on sternal
notch to elicit swallow. She complained of dry mouth, so question if this is etiology. During evaluation, P.O. trials of regular solids and thin liquids provided. Adequate mastication, bolus formation, and A-P transit noted with no oral residue.
No overt signs of aspiration.
Recommend:
(1) Regular solids/thin liquids
(2) General aspiration precautions
(3) Meds as tolerated
(4) INSPECTOR COLD WORKING to follow pending results of MRI
[2024-10-25 08:42] LABS: Erythrocyte Sed Rate 64 mm/hour (0-20)
--- NOTE | 2024-10-25 09:12 | W.PN.HOSP.TC ---
Today's Communication/Plan
-
Started losartan
Continue pain management
Assessment / Plan
Assessment / Plan
Impression:This is a 69-year-old with past medical history significant for multiple sclerosis, nephrolithiasis, fibromyalgia, hypertension, hypothyroid, recurrent nephrolithiasis who presents to the emergency department with progressive worsening
left-sided headache numbness and paresthesias.
Plan:
#Hypertensive urgency
#Hx of HTN
�Initial recorded BP in ER was 207/126
� Received labetalol stat and then started on nicardipine gtt
�Nicardipine weaned off early a.m.
� BP stable
� Continue Norvasc
� Started losartan
- Wean O2
#Facial numbness likely due to MS flare vs trigeminal neuralgia
#Right eye visual defect likely due to MS
- Diagnosed with MS 30 years ago and follows with neurology at [place]
� Stroke workup though not likely�lipid panel wnl (triglyceride elevated but patient likely not fasting), A1c pending
� Neurochecks discontinued
� Neurology consulted, appreciated
� MRI order stopped as per neuro, at this time likely flare of old MS lesions
� Trileptal given for possible trigeminal neuralgia
#Chronic pain syndrome due to MS
� Oxycodone for moderate/severe pain and IV Dilaudid for breakthrough
� Continue Ativan ADVERTISING AGENT
� Continue gabapentin
#Paroxysmal atrial tachycardia
#Essential tremor
- EKG NSR in ER on adm
� Follows with OP
�Patient was previously on propranolol but did not tolerate high doses
� Will consider starting propranolol at very low dose to help with BP and tremor
#Postoperative hypothyroidism
� Continue levothyroxine
#Hyperlipidemia
� Continue Crestor
#Depression
#Bipolar disorder
� Continue sertraline and Abilify
DVT PPx: Lovenox
Full code
Anticipated Discharge: 24 - 48 hours
Subjective/Interval History
-
Date of Service: October 25, 2024
Patient continues to have numbness on left side of her face which is slightly improved from yesterday. She also continues to have frontal headache. Denies any vomiting/fever
Objective Data
-
Labs:
Laboratory Results
10/25/24
05:02
WBC 9.6
Hgb 11.3 L
Hct 34.1 L
Plt Count 192
PT 13.3
INR 0.98
APTT 27.0
Sodium 141
Potassium 3.8
Chloride 106
Carbon Dioxide 26
BUN 23 H
Creatinine 0.9
Glucose 129 H
Calcium 8.1 L
Vital Signs:
Vital Signs
Temp Pulse Resp BP Pulse Ox
98.5 F 74 19 137/72 95
10/25/24 07:30 10/25/24 07:52 10/25/24 06:00 10/25/24 07:52 10/25/24 06:00
I&O
10/24/24 10/25/24 10/26/24
06:59 06:59 06:59
Intake Total 62.5 / 62.5
Balance 62.5 / 62.5
Review of Systems
-
All other systems: Reviewed and negative
Physical Exam
-
General: No Apparent Distress and Obese
HEENT: Normocephalic and Atraumatic
Respiratory: Clear to Auscultation
Cardiac: Regular Rhythm and S1/S2
GI: Soft, Nontender and Nondistended
Musculoskeletal: No Cyanosis, No Edema and Other (Has chronic right lower leg weakness due to MS)
Skin: Warm and Dry
Neuro: Awake, Alert and Oriented
Psych: Calm
[2024-10-25] MEDS: COZAAR 25 MG PO (11:36)
[2024-10-25] MEDS: REGLAN 10 MG IV (12:54)
[2024-10-25] MEDS: TRILEPTAL 150 MG PO ×2 (12:54→21:03)
--- NOTE | 2024-10-25 13:13 | PTCARENOTE ---
Dr. Eaton TT'd that his injection is at the bedside locked in the cart and to notify the RN when he is ready.
[2024-10-25] MEDS: FIORICET 2 TAB PO (13:32)
--- NOTE | 2024-10-25 13:45 | PTCARENOTE ---
Fioricet and Trileptal administered as ordered. She is back in bed, her went home. No changes in assessment.
--- NOTE | 2024-10-25 14:14 | TRANSFER ---
Addendum entered by Holly Kennedy RN 10/25/24 14:40:
Report was called to [facility]. On receiving the pt he was notified jaime Dr. Eaton has possession if her infectible medications and Lovenox would still be ok to administer as ordered.
Original Note:
Report called to Mo GARNICA for room 405-2. She will be transferred via W/C. Pt is aware of the transfer.
[2024-10-25 14:31] LABS: Glycohemoglobin (HgbA1c) 5.6 % (4.0-5.6)
--- NOTE | 2024-10-25 14:36 | CM ---
Initial assessment completed with patient who lives with her in a ranch style home with 2 floors, bed and bath are on the main floor. Patient does not go to lower floor. 2 steps to enter home. Uses a SPC for ambulation as well as a wheel
cart for longer distances. Patient admits to falls due to MS. She does not have any in-home services. She does participate in an outpatient setting at for PT. Patient does not drive. Her transports her. Patient has had one
psychiatric hospitalization which was attributed to a drug induced psychosis. She was tried on a different drug for her MS and had a severe reaction. She has a large support system with family and friends.Patient and are having finacial
difficulties lately because lost job and patient is unable to work due to her medical conditions. They had food stamps in the past and then was no longer eligible because was working and income was too high. currently is not
working and seeking employment. Currently, patient and have food and housing with utilities. Patient intends on reapplying for food stamps since is not working. The [employer] website was provided and patient has access to a
computer and I-Pad and intends on researching the available services. PCP is Dr. Taylor Liang at and Pharmacy is [facility] on [facility]. POA is her immigration attorney, Quentin Mike. Discharge POC: TBD. Patient wants to continue
outpatient PT at .
[2024-10-25] MEDS: KENALOG-40 40 MG IM (14:58)
[2024-10-25] MEDS: SENSORCAINE 0.5% SINGLE DOSE 30 ML INJ (14:58)
--- NOTE | 2024-10-25 15:42 | CM ---
Met with patient, provided RUIZ. It is signed and on chart.
--- NOTE | 2024-10-25 15:57 | W.PN.UPDATE ---
Update Note
Progress Note Update
Procedure note
10872 trigeminal nerve block
29030 sphenopalatine ganglion block
Diagnosis
G50.0 trigeminal neuralgia
G43.011 intractable migraine without aura
10 cc syringe 22 g x 1.5 in needle drawn, was drawn 5 cc of bupivicaine 0.5% and 40 mg Kenalog-40
left trigeminal nerve block percutaneous through TMJ hit the wall of pterygoid plate, slightly pull needle back, withdraw no blood and contents injected
3 cc syringe, 18g x 1.25 in plastic angiocath drawn 1.5 cc of bupivicaine 0.5%
in supine position, 0.75 cc sprayed in each nostril.
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
[2024-10-25] MEDS: LOVENOX 40 MG SC (16:46)
[2024-10-25] MEDS: CRESTOR 40 MG PO (21:03)
[2024-10-26] MEDS: ZOLOFT 100 MG PO ×2 (05:03→10:39)
[2024-10-26] MEDS: SYNTHROID 100 MCG PO (05:05)
[2024-10-26 06:49] LABS: % Basophils 0.5 % (0-2); % Eosinophils 0.3 % (0-6); % Immature Granulocytes 0.5 % (0-0.5); % Lymphocytes 8.4 % (20.5-51.1); % Monocytes 5.2 % (1.7-9.3); % Neutrophils 85.1 % (42.2-75.2); Absolute Lymphocytes 0.7 10^3/uL (1.2-3.4); Absolute Monocytes 0.5 10^3/uL (0.1-0.6); Absolute Neutrophils 7.4 10^3/uL (1.4-6.5); Hematocrit 35.6 % (37.0-47.0); Hemoglobin 11.4 g/dL (12.0-16.0); Mean Corpuscular Hgb 27.5 pg (27.0-31.0); Mean Corpuscular Volume 85.8 fL (81.0-99.0); Mean Platelet Volume 9.7 fL (7.4-10.4); Nucleated Red Blood Cells % 0 %; Platelet Count 176 10^3/uL (130-400); Red Blood Cell Count 4.15 10^6/uL (4.20-5.40); Red Cell Dist. Width 15.1 % (11.5-14.5); White Blood Cell Count 8.7 10^3/uL (4.8-10.8)
[2024-10-26 07:17] LABS: Blood Urea Nitrogen 24 mg/dl (7-17); Calcium 8.1 mg/dl (8.4-10.2); Carbon Dioxide 29 mmol/L (22-30); Chloride 105 mmol/L (98-107); Estimated Creatinine Clearance 73 ml/min; Glucose 115 mg/dl (70-99); Potassium 3.9 mmol/L (3.5-5.1); Sodium 141 mmol/L (135-145); eGFR > 60.00
--- NOTE | 2024-10-26 07:31 | W.PN.HOSP.TC ---
Today's Communication/Plan
-
Continue Norvasc, losartan on discharge
Continue Trileptal
Dispo to home
Assessment / Plan
Assessment / Plan
Impression:This is a 69-year-old with past medical history significant for multiple sclerosis, nephrolithiasis, fibromyalgia, hypertension, hypothyroid, recurrent nephrolithiasis who presents to the emergency department with progressive worsening
left-sided headache numbness and paresthesias.
Plan:
#Hypertensive urgency
#Hx of HTN
�Initial recorded BP in ER was 207/126
� Received labetalol stat and then started on nicardipine gtt
�Nicardipine weaned off
� BP stable
� Continue Norvasc
� Continue losartan
- O2 has been weaned off
#Facial numbness likely due to MS flare vs trigeminal neuralgia
#Right eye visual defect likely due to MS
- Diagnosed with MS 30 years ago and follows with neurology at [place]
� Stroke workup though not likely�lipid panel wnl (triglyceride elevated but patient likely not fasting), A1c pending
� Neurochecks discontinued
� Neurology consulted, appreciated
� MRI order not needed as per neuro as no new symptoms
- Continue teriflunomide
� Trileptal started and trigeminal nerve block done by neurology
#Chronic pain syndrome due to MS
� Oxycodone for moderate/severe pain and IV Dilaudid for breakthrough
� Continue Ativan [employer]
� Continue gabapentin
#Paroxysmal atrial tachycardia
#Essential tremor
- EKG NSR in ER on adm
� Follows with Dr.Scheiring MCNAMARA
�Patient was previously on propranolol but did not tolerate high doses
� Will consider starting propranolol at very low dose to help with BP and tremor
#Postoperative hypothyroidism
� Continue levothyroxine
#Hyperlipidemia
� Continue Crestor
#Depression
#Bipolar disorder
� Continue sertraline and Abilify
DVT PPx: Lovenox
Full code
Anticipated Discharge: 24 - 48 hours
Subjective/Interval History
-
Date of Service: October 26, 2024
Patient states numbness of face has decreased and feels much better today.
Objective Data
-
Labs:
Laboratory Results
10/26/24
05:59
WBC 8.7
Hgb 11.4 L
Hct 35.6 L
Plt Count 176
Sodium 141
Potassium 3.9
Chloride 105
Carbon Dioxide 29
BUN 24 H
Creatinine 0.8
Glucose 115 H
Calcium 8.1 L
Vital Signs:
Vital Signs
Temp Pulse Resp BP Pulse Ox
98.2 F 81 18 157/81 93
10/25/24 23:22 10/25/24 23:22 10/25/24 23:22 10/25/24 23:22 10/25/24 23:22
I&O
10/25/24 10/26/24 10/27/24
06:59 06:59 06:59
Intake Total 62.5 / 62.5 480 / 480
Balance 62.5 / 62.5 480 / 480
Review of Systems
-
All other systems: Reviewed and negative
Physical Exam
-
General: No Apparent Distress and Obese
HEENT: Normocephalic and Atraumatic
Respiratory: Clear to Auscultation
Cardiac: Regular Rhythm and S1/S2
GI: Soft, Nontender and Nondistended
Musculoskeletal: No Cyanosis, No Edema and Other (Has chronic right lower leg weakness due to MS)
Skin: Warm and Dry
Neuro: Awake, Alert and Oriented
Psych: Calm
[2024-10-26 07:36] VITALS: BP 131/104
[2024-10-26] MEDS: ATIVAN 1 MG PO (09:38)
[2024-10-26] MEDS: TRILEPTAL 150 MG PO (09:38)
[2024-10-26] MEDS: NEURONTIN 300 MG PO (09:38)
[2024-10-26] MEDS: ABILIFY 5 MG PO (09:38)
[2024-10-26] MEDS: OSCAL 500 + D 500 MG PO (09:38)
[2024-10-26] MEDS: ROCALTROL 0.5 MCG PO (09:39)
[2024-10-26] MEDS: COZAAR 25 MG PO (09:39)
[2024-10-26] MEDS: NORVASC 10 MG PO (09:39)
--- NOTE | 2024-10-26 10:29 | PTCARENOTE ---
Assumed care of pt from previous nurse. Pt denies pain. pt call mariscal is within reach, pt rings david. ambulating independently with a single point cane. Pt for possible dc today. will cont to monitor.
--- NOTE | 2024-10-26 11:48 | W.DCSUMMARY ---
Discharge Summary
Discharge Data
Date of Admission: 10/25/24
Date of Discharge: 10/26/24
-
Pending Results: No
Hospital Course
Discharging Physician : Dr. Sudhir Carlos, Dr. Cerda
Disposition : Home
Primary care physician : Dr.Karen Liang
Principal Discharge diagnosis : Hypertensive emergency, multiple sclerosis flare, trigeminal neuralgia
Chronic Discharge diagnosis : Hypertension, paroxysmal atrial tachycardia, chronic pain syndrome, hypothyroidism, hyperlipidemia, depression, bipolar disorder
Hospital Course : This is a 69-year-old female patient presenting to the hospital due to progressive left-sided facial numbness and headache. Upon arrival to the ER her blood pressure was found to be 207/126 and she was given labetalol initially
and then started on a nicardipine drip. She had a CT head done which was unremarkable. Facial numbness was thought to be possibly due to a MS flare and neurology was consulted. MRI brain was not done as patient strictly did not have any new
symptoms. Facial pain/numbness was thought to be due to trigeminal neuralgia and patient was started on Trileptal and given a trigeminal nerve block. She was continued on teriflunomide for her multiple sclerosis. Her blood pressures started to
become more controlled and patient was weaned off of cardiac pain drip and started on losartan in addition to her home medication of Norvasc. As patient overall condition improved, she was stable for discharge and was able to be sent home on new
medications of Trileptal and losartan. She was advised to follow-up with her primary care physician along with her primary neurologist. Otherwise her other chronic comorbidities were stable.
Important imaging findings :
Head CT on acute intracranial abnormality noted
CXR on acute cardiopulmonary process noted
Discharge Plan
-
Patient Disposition: Home (Routine Discharge)
Discharge Diagnosis/Procedures: Hypertensive Emergency, Facial Numbness likely due to Multiple Sclerosis Flare, Trigeminal Neuralgia
Diet: Low Sodium
Activity: As tolerated
Referrals:
Ricardo Dyer MD [Active] - in three to four weeks (Given hypoxia during sleep, outpatient sleep disordered breathing evaluation warranted)
Taylor Liang MD [Family Provider] -
Additional Discharge Medication Instructions: Follow up with your primary neurologist in 1 to 2 weeks.
Prescriptions:
New
amlodipine 10 mg Tablet
10 mg PO DAILY Qty: 30 0RF
losartan 25 mg Tablet
25 mg PO DAILY Qty: 30 0RF
oxcarbazepine 150 mg tablet
150 mg PO BID Qty: 60 0RF
Continued
sertraline [Zoloft] 100 mg Tablet
100 mg PO BID@0400,1000
levothyroxine [Synthroid] 100 mcg tablet
100 mcg PO DAILY
lorazepam 0.5 mg Tablet
0.5 mg PO QID
calcitriol 0.5 mcg Capsule
0.5 mcg PO TID
ergocalciferol (vitamin D2) 1,250 mcg (50,000 unit) capsule
50,000 unit PO SCHUMACHER
colestipol 1 gram Tablet
1 g PO BID
aripiprazole [Abilify] 5 mg Tablet
5 mg PO DAILY
rosuvastatin [Crestor] 40 mg Tablet
40 mg PO HS
teriflunomide 14 mg Tablet
14 mg PO DAILY
acetaminophen [Tylenol 8 Hour] 650 mg Tablet Extended Release
1,300 mg PO [id number] PRN (Reason: mild pain)
gabapentin 300 mg Capsule
300 mg PO TID
gabapentin 300 mg Capsule
300 mg PO DAILYPRN PRN (Reason: mild pain)
lorazepam 1 mg Tablet
1 mg PO DAILY
calcium carbonate-vitamin D3 [Calcium 600 + D(3)] 600 mg-10 mcg (400 unit) Tablet
1 tab PO BID
Discontinued
amlodipine 5 mg Tablet
7.5 mg PO DAILY
Discharge Orders:
Discharge Patient (As Directed); Ordered 10/26/24
Ordered By: Isabella Cerda
Discharge Date and Time
Print Language: SAO TOMEAN
--- NOTE | 2024-10-26 12:05 | PTCARENOTE ---
Pt dc'd to home with , escorted by w/c. Pt iv removed, paperwork reviewed, copy provided.
[2024-10-26 13:47] LABS: Hepatitis C Antibody Negative (Negative)
== END 2024-10-26 11:58 | disposition home or self-care (01) | DRG 74 ==
LOC: 4 EAST ACU 14:50
PROVIDERS: Nurse Practitioner Primary Care; Student in an Organized Health Care Education/Training Program; ADMITTING PHYSICIAN Internal Medicine; ATTENDING PHYSICIAN Hospitalist; CONSULT PHYSICIAN Internal Medicine Critical Care Medicine; CONSULT PHYSICIAN Psychiatry & Neurology Clinical Neurophysiology; EMERGENCY PHYSICIAN Emergency Medicine; FAMILY PHYSICIAN Family Medicine
DX: G50.0 Trigeminal neuralgia (principal); I16.1 Hypertensive emergency; I47.19 Other supraventricular tachycardia; G35 Multiple sclerosis; I10 Essential (primary) hypertension; G89.4 Chronic pain syndrome; F32.A Depression, unspecified; E78.00 Pure hypercholesterolemia, unspecified; E89.0 Postprocedural hypothyroidism; G43.019 Migraine without aura, intractable, without status migrainosus; G25.0 Essential tremor; F31.9 Bipolar disorder, unspecified
CPT/HCPCS: 70450; 71045; 80048; 80053; 80061; 82962; 83036; 83735; 85025; 85027; 85610; 85652; 85730; 86803; 90677; 92523; 92610; 93005; 96365; 96375; 96376; 97163; 97167; 99291; G0009

== ENCOUNTER → 2024-11-09 10:20 | Outpatient (REF) | payer MEDICARE, OTHER, SELFPAY ==
[2024-11-09 11:42] LABS: NT-proBNP 363 pg/ml
[2024-11-09 12:04] LABS: Blood Urea Nitrogen 24 mg/dl (7-17); Calcium 8.8 mg/dl (8.4-10.2); Carbon Dioxide 30 mmol/L (22-30); Chloride 103 mmol/L (98-107); Glucose 103 mg/dl (70-99); Sodium 140 mmol/L (135-145); eGFR > 60.00
== END ==
LOC: REG 10:20
PROVIDERS: ATTENDING PHYSICIAN Internal Medicine Cardiovascular Disease
DX: I10 Essential (primary) hypertension (principal)
CPT/HCPCS: 36415; 80048; 83880; 84443

== ENCOUNTER → 2024-12-08 09:41 | Outpatient (REF) | payer MEDICARE, OTHER, SELFPAY ==
[2024-12-08 10:15] LABS: Ionized Calcium 1.12 mMOL/L (1.15-1.33)
[2024-12-08 10:41] LABS: ALT (SGPT) < 10 U/L (0-35); AST (SGOT) 19 U/L (14-36); Albumin 4.8 g/dl (3.5-5.0); Alkaline Phosphatase 83 U/L (38-126); Blood Urea Nitrogen 22 mg/dl (7-17); Calcium 9.9 mg/dl (8.4-10.2); Carbon Dioxide 27 mmol/L (22-30); Chloride 101 mmol/L (98-107); Glucose 120 mg/dl (70-99); Potassium 4.8 mmol/L (3.5-5.1); Sodium 138 mmol/L (135-145); Total Bilirubin 0.7 mg/dl (0.2-1.3); Total Protein 7.8 g/dl (6.3-8.2); eGFR > 60.00
[2024-12-08 11:11] LABS: TSH Reflex To Free T4 4.46 uIU/ml (0.47-4.68)
[2024-12-08 11:18] LABS: NT-proBNP 72.5 pg/ml
== END ==
LOC: REG 09:41
PROVIDERS: ATTENDING PHYSICIAN Internal Medicine Endocrinology, Diabetes & Metabolism; FAMILY PHYSICIAN Family Medicine; OTHER PHYSICIAN Internal Medicine Cardiovascular Disease
DX: E03.9 Hypothyroidism, unspecified (principal); E89.2 Postprocedural hypoparathyroidism; I10 Essential (primary) hypertension
CPT/HCPCS: 36415; 80053; 82330; 83880; 84443

== ENCOUNTER → 2025-02-08 13:40 | Outpatient (REF) | payer MEDICARE, OTHER, SELFPAY | LOC: WDC 13:40 | PROVIDERS: ATTENDING PHYSICIAN Family Medicine | DX: Z12.31 Encounter for screening mammogram for malignant neoplasm of breast (principal) | CPT/HCPCS: 77063; 77067 ==

== ENCOUNTER → 2025-04-30 12:34 | Outpatient (REF) | payer MEDICARE, OTHER, SELFPAY | LOC: RAD 12:34 | PROVIDERS: ATTENDING PHYSICIAN Family Medicine | DX: J45.21 Mild intermittent asthma with (acute) exacerbation (principal) | CPT/HCPCS: 71046 ==